=== PATIENT | male | born 1955 | race African-American/Black ===

== ENCOUNTER 2018-05-30 13:18 | Inpatient (IN) | payer OTHER ==
[~2018-05-30] VITALS: Ht 170.2 cm; Wt 90.7 kg
--- NOTE | ~2018-05-30 | EKG ---
[address] [employer] [place] [address] ELECTROCARDIOGRAM REPORT Name: BRANDON ALSTON Room #: 463-P ADM IN M.R.#: [id number] Admission: 05/30/18 Attend Phys: Rainer Montemayor MD Discharge: Date of : 53 Report #: [id number] THIS REPORT FOR: //name// [facility] ED Test Date: 2018-05-30 Test Time: 13:32:19 Pat Name: BRANDON ALSTON Department: Room: 463 Gender: M Assisted Living Associate: Tim : 1955 Requested By: Barbara Fajardo Order Number: [id number] MD: Remy Child Measurements Intervals [place] Rate: 112 P: 50 NE: 156 QRS: 44 QRSD: 81 T: -35 QT: 313 QTc: 428 Interpretive Statements Sinus tachycardia left atrial enlargement NS ST/T abnormalities No previous ECG available for comparison Electronically Signed On 05-30-2018 23:53:03 PSYCHIATRIC REGISTERED NURSE by Remy Child [email or web address] <ELECTRONICALLY SIGNED> By: Remy Child MD 05/30/18 2353 [id number] 133 Remy Child MD /DAYAN
[2018-05-30 13:43] LABS: URINE BLOOD NEGATIVE (Negative); URINE CLARITY CLEAR; URINE COLOR YELLOW; URINE GLUCOSE-RANDOM* 1+ (Negative); URINE KETONES 1+ (Negative); URINE LEUKOCYTES-REFLEX NEGATIVE (Negative); URINE NITRITE-REFLEX NEGATIVE (Negative); URINE PROTEIN (DIPSTICK) 1+ (Negative); URINE SPECIFIC GRAVITY >= 1.030 (1.005-1.035); URINE UROBILINOGEN 0.2 E.U./dl (0.2-1.0)
[2018-05-30 13:44] LABS: ABSOLUTE NEUTROPHILS 13.1 thou/uL (1.4-8.2); BASOPHILS 0.3 % (0.0-2.0); EOSINOPHILS 0.1 % (0.0-3.0); HEMATOCRIT 48.6 % (42.0-52.0); HEMOGLOBIN 16.2 gm/dL (14.0-18.0); LYMPHOCYTES 3.2 % (24.0-44.0); MCH 27.2 pg (26.0-34.0); MCHC 33.4 g/dL (28.0-37.0); MCV 81.6 fL (80.0-100.0); MONOCYTES 6.4 % (1.0-8.0); PLATELET COUNT 298 thou/uL (150-400); RBC 5.95 mil/uL (4.50-6.00); RDW 14.1 % (10.5-14.5); WBC 14.5 thou/uL (4.0-11.0)
[2018-05-30 13:46] LABS: ICTOTEST (BILI CONFIRMATORY) Negative (Negative); URINE BILIRUBIN NEGATIVE (Negative)
[2018-05-30 13:50] LABS: ANION GAP 16 mmol/L (7-16); BUN 17 mg/dL (7-18); CALCIUM 9.9 mg/dL (8.5-10.1); CHLORIDE 97 mmol/L (98-107); CO2 26 mmol/L (21-32); CREATININE 1.3 mg/dL (0.7-1.3); GLUCOSE 191 mg/dL (74-106); POTASSIUM 3.8 mmol/L (3.5-5.1); SODIUM 139 mmol/L (136-145)
[2018-05-30 13:53] LABS: BACTERIA-REFLEX 1-9 Few /HPF (None Seen); CASTS None Seen /LPF (None Seen); CRYSTALS None Seen /LPF (None Seen); SQUAMOUS None Seen /LPF (0-3); URINE RBC None Seen /HPF (0-2); URINE WBC-REFLEX None Seen /HPF (0-5)
[2018-05-30 13:58] LABS: ALBUMIN 4.6 g/dL (3.4-5.0); LIPASE 147 U/L (73-393); SGOT 54 U/L (15-37); SGPT 116 U/L (30-65); TOTAL BILIRUBIN 0.6 mg/dL (<0.1-1.0); TOTAL PROTEIN 9.1 g/dL (6.4-8.2); TROPONIN-I <0.06 ng/mL (<0.06)
[2018-05-30] MEDS ORDERED: AMITRIPTYLINE H75 M2 PO (14:16)
[2018-05-30] MEDS ORDERED: VERAPAMIL E.R240 M1 PO (14:16)
[2018-05-30] MEDS ORDERED: IBUPROFEN 600600 M1 PO (14:16)
[2018-05-30] MEDS ORDERED: DIPHENHIST50 MG PO (14:17)
[2018-05-30] MEDS ORDERED: PRAVACHOL20 MG PO (14:17)
[2018-05-30] MEDS ORDERED: HYDROCHLOROTH12.5 M2 PO (14:22)
[2018-05-30] MEDS ORDERED: HYDROCHLOROTHIA25 M2 PO (14:43)
[2018-05-30 15:43] VITALS: BP 118/66
[2018-05-30 16:40] VITALS: BP 118/66
[2018-05-30 17:09] VITALS: BP 129/82
[2018-05-30 19:28] VITALS: BP 127/73
[2018-05-31 06:05] LABS: HEMATOCRIT 40.4 % (42.0-52.0); MCH 26.7 pg (26.0-34.0); MCHC 32.6 g/dL (28.0-37.0); MCV 81.7 fL (80.0-100.0); RBC 4.95 mil/uL (4.50-6.00); RDW 14.2 % (10.5-14.5); WBC 6.4 thou/uL (4.0-11.0)
[2018-05-31 06:11] LABS: HEMOGLOBIN 13.2 gm/dL (14.0-18.0)
[2018-05-31 06:17] LABS: CALCIUM 8.1 mg/dL (8.5-10.1); POTASSIUM 3.8 mmol/L (3.5-5.1)
[2018-05-31 06:32] VITALS: BP 107/63
[2018-05-31 08:25] VITALS: BP 109/69
[2018-05-31 15:47] VITALS: BP 109/66
[2018-05-31 19:31] VITALS: BP 131/82
[2018-06-01 04:01] VITALS: BP 121/72
[2018-06-01 05:37] LABS: HEMATOCRIT 38.7 % (42.0-52.0); HEMOGLOBIN 12.6 gm/dL (14.0-18.0); MCH 26.7 pg (26.0-34.0); MCHC 32.5 g/dL (28.0-37.0); MCV 82.2 fL (80.0-100.0); RBC 4.7 mil/uL (4.50-6.00); RDW 14.2 % (10.5-14.5); WBC 5.4 thou/uL (4.0-11.0)
[2018-06-01 05:51] LABS: CALCIUM 8.4 mg/dL (8.5-10.1); CREATININE 0.9 mg/dL (0.7-1.3)
[2018-06-01 08:13] VITALS: BP 125/75
[2018-06-01 14:38] VITALS: BP 144/93
[2018-06-01 19:55] VITALS: BP 159/114
[2018-06-01 22:56] VITALS: BP 134/86
[2018-06-02 07:17] LABS: HEMATOCRIT 40.9 % (42.0-52.0); HEMOGLOBIN 13.4 gm/dL (14.0-18.0); MCH 26.4 pg (26.0-34.0); MCHC 32.7 g/dL (28.0-37.0); MCV 80.7 fL (80.0-100.0); RBC 5.07 mil/uL (4.50-6.00); RDW 13.8 % (10.5-14.5)
[2018-06-02 07:31] LABS: CALCIUM 9.1 mg/dL (8.5-10.1); POTASSIUM 4.1 mmol/L (3.5-5.1)
[2018-06-02 08:25] VITALS: BP 137/91
[2018-06-02 16:03] VITALS: BP 137/91
== END 2018-06-02 16:20 | disposition home or self-care (01) | DRG 388 ==
LOC: ER 13:18 → 4W 15:44 → EROBS 15:44 → 4W 16:54 → SICU 06-01 14:49 → ENTRNSPT 06-02 16:16 → SICU 06-02 16:20
PROVIDERS: Hospitalist; Physician Assistant
DX: K56.600 Partial intestinal obstruction, unspecified as to cause (principal); E43 Unspecified severe protein-calorie malnutrition; R65.10 Systemic inflammatory response syndrome (SIRS) of non-infectious origin without acute organ dysfunction; I10 Essential (primary) hypertension; E78.5 Hyperlipidemia, unspecified; F43.10 Post-traumatic stress disorder, unspecified; G47.30 Sleep apnea, unspecified; Z86.73 Personal history of transient ischemic attack (TIA), and cerebral infarction without residual deficits; Z90.49 Acquired absence of other specified parts of digestive tract; Z79.899 Other long term (current) drug therapy
CPT/HCPCS: 10045; 15002

== ENCOUNTER 2021-05-30 10:52 | Emergency (ER) | payer OTHER ==
[~2021-05-30] VITALS: Ht 170.2 cm; Wt 81.2 kg
[~2021-05-30 10:52] MED LIST: AMITRIPTYLINE H75 M2 PO; DIPHENHIST50 MG PO; HYDROCHLOROTH12.5 M2 PO; HYDROCHLOROTHIA25 M2 PO; IBUPROFEN 600600 M1 PO; PRAVACHOL20 MG PO; VERAPAMIL E.R240 M1 PO
[2021-05-30 10:53] VITALS: BP 143/71
== END 2021-05-30 11:10 | disposition home or self-care (01) ==
LOC: ER 10:52
DX: T16.1XXA Foreign body in right ear, initial encounter (principal); I10 Essential (primary) hypertension; Z98.890 Other specified postprocedural states; Z79.891 Long term (current) use of opiate analgesic; Z79.899 Other long term (current) drug therapy; X58.XXXA Exposure to other specified factors, initial encounter; Y93.89 Activity, other specified; Y92.89 Other specified places as the place of occurrence of the external cause; Y99.8 Other external cause status